=== PATIENT | female | born 1960 | race Caucasian/White ===

== ENCOUNTER 2018-12-30 20:34 | Emergency (ER) | payer OTHER ==
[~2018-12-30] VITALS: Ht 172.7 cm; Wt 109.0 kg
--- NOTE | 2018-12-30 20:58 | NUR ---
COUGH, SORE THROAT, RUNNY NOSE FOR 15 DAYS. PT C/O DIZZINESS NOW, HIGH HR AT HOME OF 130, ALBERTO, AND BURNING CP. STATES, SINUS INFECTION, FLUID BEHIND EARS (URGENT CARE TODAY). BURNING IN CHEST AND PAIN ACROSS UPPER BACK WHEN COUGHING. ALSO C/O OF NAUSEA. PA AT BEDSIDE, PLACED ON MONITOR, CALL LIGHT IN REACH
[2018-12-30 21:36] LABS: MEAN CORPUSCULAR HEMOGLOBIN 27.6 pg (27.0-34.8); MEAN CORPUSCULAR HGB CONC 34.1 g/dL (32.4-35.8); MEAN CORPUSCULAR VOLUME 80.8 fL (80-100); MEAN PLATELET VOLUME 7.9 fL (7.4-10.4); PLATELET COUNT 196 x10^3/uL (130-400); RED BLOOD COUNT 4.84 x10^6/uL (3.82-5.3); RED CELL DISTRIBUTION WIDTH 14.2 % (9.6-15.2)
[2018-12-30 21:39] LABS: ALBUMIN 3.3 g/dL (3.4-5.0); ANION GAP 8 mmol/L (5-15); CALCIUM 8.2 mg/dL (8.5-10.1); CHLORIDE 102 mmol/L (98-107); CREATININE 0.63 mg/dL (0.55-1.02)
[2018-12-30 21:43] LABS: TROPONIN I < 0.015 ng/mL (0.000-0.045)
--- NOTE | 2018-12-30 21:52 | NUR ---
PT C/O PF HEAD PAIN 8.03/04 Addendum: 12/30/18 at 2153 [email or web address] LAWSON MD CHERRYIED
[2018-12-30] MEDS ORDERED: KETOROLAC 30 MG/1 ML ONE (21:55)
[2018-12-30 21:59] LABS: RAPID INFLUENZA A POSITIVE (Negative); RAPID INFLUENZA B Negative (Negative)
[2018-12-30] MEDS ORDERED: KETOROLAC 30 MG/1 ML IM ONE (22:00)
[2018-12-30 22:09] LABS: BASOPHILS # (AUTO) 0.01 x10^3/uL (0-0.1); BASOPHILS % (AUTO) 1 % (0-1); EOSINOPHILS # (AUTO) 0.01 x10^3/uL (0-0.4); EOSINOPHILS % (AUTO) 0 % (1-7); LYMPHOCYTES # (AUTO) 0.71 x10^3/uL (1-3.4); LYMPHOCYTES % (AUTO) 26 % (22-44); MD SCAN; MONOCYTES # (AUTO) 0.44 x10^3/uL (0.2-0.8); MONOCYTES % (AUTO) 16 % (2-9); NEUTROPHILS # (AUTO) 1.58 x10^3/uL (1.8-6.8); NEUTROPHILS % (AUTO) 57 % (42-75)
[2018-12-30 22:44] VITALS: BP 127/70
== END 2018-12-30 22:45 | disposition home or self-care (01) ==
LOC: ED 21:20
DX: J10.1 Influenza due to other identified influenza virus with other respiratory manifestations (principal); E11.9 Type 2 diabetes mellitus without complications
CPT/HCPCS: 36415; 71045; 80048; 82040; 82962; 84484; 85025; 87400; 93005; 96372; 99284; J1885